=== PATIENT | female | born 2000 | race Caucasian/White ===

== ENCOUNTER 2024-05-10 00:15 | Emergency (ER) | payer OTHER ==
[~2024-05-10] VITALS: Ht 170.2 cm; Wt 70.0 kg
[2024-05-10 00:39] VITALS: O2SAT 100
[2024-05-10] MEDS: ONDANSETRON HCL 4MG/2ML INJ IV ONE (01:08)
[2024-05-10] MEDS: LACTATED RINGERS 1,000 ML IV SCH (01:08)
[2024-05-10 01:10] LABS: BASOPHILS % 0.7 % (0.0-2.0); EOSINOPHILS % 0.2 % (0.0-5.0); HEMATOCRIT. 38.8 % (36.0-48.0); HEMOGLOBIN. 13.1 g/dL (12.0-16.0); LYMPHOCYTES % 25.4 % (20.0-50.0); MEAN CORPUSCULAR HEMOGLOBIN 29.2 pg (28.0-32.0); MEAN CORPUSCULAR HGB CONC 33.7 g/dL (31.0-37.0); MEAN CORPUSCULAR VOLUME 86.8 fL (81.0-99.0); MEAN PLATELET VOLUME 9.5 fl (7.4-10.4); MONOCYTES % 2.9 % (2.0-8.0); NEUTROPHILS % 70.8 % (40.0-76.0); PLATELET 292 x1000/uL (130-400); RED BLOOD CELL COUNT 4.47 mill/uL (4.2-5.4); RED CELL DISTRIBUTION WIDTH 13.1 % (11.6-14.6); WHITE BLOOD COUNT 10.1 x1000/uL (4.5-11.0)
[2024-05-10 01:16] LABS: CARBON DIOXIDE 25 mEq/L (21-32); CHLORIDE 106 mEq/L (98-107); POTASSIUM 4.2 mEq/L (3.5-5.1); SODIUM 140 mEq/L (136-145)
[2024-05-10 01:17] LABS: CALCIUM 9.4 mg/dL (8.7-10.4)
[2024-05-10 01:21] LABS: CREATININE 0.8 mg/dL (0.6-1.0)
[2024-05-10 01:22] LABS: ETHANOL BLOOD 237 mg/dL (<10); GLUCOSE 150 mg/dL (70-105); UREA NITROGEN BLOOD 9 mg/dL (9-23)
[2024-05-10 01:23] LABS: ALANINE AMINOTRANSFERASE 23 IU/L (10-49); ASPARTATE AMINOTRANSFERASE 42 IU/L (<34)
[2024-05-10 01:24] LABS: BILIRUBIN DIRECT 0.2 mg/dL (<=3.0); BILIRUBIN TOTAL 0.5 mg/dL (0.1-1.0); PROTEIN TOTAL 8.1 g/dL (6.0-8.3)
[2024-05-10 01:25] LABS: HCG SCREEN NEGATIVE
[2024-05-10 02:00] VITALS: TEMP 36.55848
[2024-05-10 04:04] VITALS: BP 109/67; PULSE 80; RESP 16; O2SAT 100
== END 2024-05-10 04:10 | disposition home or self-care (01) ==
LOC: ER 00:15
DX: S09.90XA Unspecified injury of head, initial encounter (principal); F10.129 Alcohol abuse with intoxication, unspecified; Z88.0 Allergy status to penicillin; Z88.6 Allergy status to analgesic agent; W18.39XA Other fall on same level, initial encounter; Y93.89 Activity, other specified; Y92.89 Other specified places as the place of occurrence of the external cause; Y99.8 Other external cause status; Y90.7 Blood alcohol level of 200-239 mg/100 ml
CPT/HCPCS: 80076; 80048; 80320; 84703; 83690; 85025; 36415; 70450; 72125; 96361; 96374; 99285; J2405; G0480